=== PATIENT | male | born 1950 | race Caucasian/White ===

== ENCOUNTER 2025-07-25 07:03 | Outpatient (CLI) | payer MEDICARE, BC, SELFPAY ==
--- NOTE | 2025-07-25 07:15 | CRLHL7_ITS ---
For Patients: As a result of the Century Cures Act, medical imaging exams and procedure reports are released immediately into your electronic medical record. You may view this report before your referring provider. If you have questions, please contact your health care provider. INDICATION: Pancreatic cyst. Comparison : CT scan of the abdomen and pelvis dated 22 December 2009. Technique : Abdominal MRI with T1 in and out of phase, T2, diffusion weighted, and progressively delayed post-contrast images. Intravenous gadolinium administered. Findings : No fatty infiltration of the liver. No focal abnormalities identified in the visualized portions of the liver, spleen, and adrenal glands. Cortical irregularity/thinning of the left kidney may be secondary to previous renal scarring. The kidneys are otherwise unremarkable. No hydronephrosis. No adenopathy. 1.3 cm lobulated septated cyst in the body of the pancreas and 7 mm cyst in the body of the pancreas. The pancreas is otherwise unremarkable. No bile duct dilation. Normal size of the main pancreatic duct. Impression : 1. Two cysts in the body of the pancreas measuring up to 1.3 cm. These could represent intraductal papillary mucinous neoplasms. Recommend follow-up MRI in 1-2 years to begin documentation of stability. Management of Incidental Pancreatic Cysts: A White Paper of the ACR Incidental Findings Committee. Journal of the [employer]. Volume 14, Number 7, April 2017, pages [phone]. Dictated by Atif Agustin MD @ 07/27/2025 3:17:30 PM Dictated by: Atif Agustin MD @ 07/27/2025 15:17:38 (Electronically Signed)
== END 2025-07-25 07:04 | disposition home or self-care (01) ==
PROVIDERS: PCP Surgery; Visit Provider Internal Medicine Gastroenterology
DX: K86.2 Cyst of pancreas (principal)
CPT/HCPCS: 74183; A9575